=== PATIENT | female | born 2000 | race African-American/Black ===

== ENCOUNTER 2020-02-09 17:11 | Emergency (ER) | payer MEDICAID ==
[~2020-02-09] VITALS: Ht 147.3 cm; Wt 44.0 kg
[2020-02-09] MEDS ORDERED: SODIUM CHLORIDE 0.9% 1,000 ML IV ONE (18:09)
[2020-02-09 18:32] LABS: CLARITY URINE CLOUDY (CLEAR); COLOR URINE YELLOW (YELLOW); KETONES URINE 2+ (NEGATIVE); LEUKOCYTE ESTERASE URINE 2+ (NEGATIVE); NITRITE URINE POSITIVE (NEGATIVE); OCCULT BLOOD URINE NEGATIVE (NEGATIVE); PH URINE 7.5 (4.5-8.0); PROTEIN URINE TRACE (NEGATIVE); SPECIFIC GRAVITY URINE 1.022 (1.005-1.030); UROBILINOGEN URINE 0.2 E.U./dL (0.2-1.0)
[2020-02-09 18:45] LABS: *AMPHETAMINES SCREEN URINE NEGATIVE (NEGATIVE); *BARBITURATES SCREEN URINE NEGATIVE (NEGATIVE); *BENZODIAZEPINES SCREEN URINE NEGATIVE (NEGATIVE); *COCAINE SCREEN URINE NEGATIVE (NEGATIVE)
[2020-02-09 18:46] LABS: METHADONE URINE SCREEN NEGATIVE (NEGATIVE); OPIATES URINE SCREEN NEGATIVE (NEGATIVE); PHENCYCLIDINE URINE SCREEN NEGATIVE (NEGATIVE)
[2020-02-09 18:49] LABS: CHLORIDE 106 mEq/L (98-107)
[2020-02-09 18:49] LABS: CANNABINOID URINE SCREEN PRESUMTIVE POSITIVE (NEGATIVE)
[2020-02-09 18:51] LABS: BASOPHILS % 0.2 % (0.0-2.0); EOSINOPHILS % 0.2 % (0.0-5.0); HEMATOCRIT. 36.7 % (36.0-48.0); LYMPHOCYTES % 8.6 % (20.0-50.0); MEAN CORPUSCULAR HEMOGLOBIN 26.1 pg (28.0-32.0); MEAN CORPUSCULAR VOLUME 79.4 fL (81.0-99.0); MEAN PLATELET VOLUME 8.1 fl (7.4-10.4); MONOCYTES % 2.8 % (2.0-8.0); NEUTROPHILS % 88.2 % (40.0-76.0); PLATELET 268 x1000/uL (130-400); RED BLOOD CELL COUNT 4.62 mill/uL (4.2-5.4); RED CELL DISTRIBUTION WIDTH 17.5 % (11.6-14.6)
[2020-02-09 18:54] LABS: ETHANOL BLOOD < 10 mg/dL
[2020-02-09 18:56] LABS: HCG SCREEN NEGATIVE
[2020-02-09] MEDS ORDERED: ONDANSETRON HCL 4MG/2ML INJ IV ONE (20:00)
[2020-02-09] MEDS ORDERED: MORPHINE SULFATE 4 MG/ML CPJ (NOT FOR IM USE) IV ONE (20:00)
[2020-02-09 22:00] VITALS: BP 122/78
== END 2020-02-10 00:47 | disposition home or self-care (01) ==
LOC: ER 17:11
DX: S09.8XXA Other specified injuries of head, initial encounter (principal); V49.49XA Driver injured in collision with other motor vehicles in traffic accident, initial encounter; Y93.89 Activity, other specified; Y92.89 Other specified places as the place of occurrence of the external cause; Y99.8 Other external cause status; N39.0 Urinary tract infection, site not specified; K21.9 Gastro-esophageal reflux disease without esophagitis; R41.0 Disorientation, unspecified
CPT/HCPCS: 36415; 70450; 70486; 71045; 80053; 80305; 80320; 81003; 81025; 84703; 85025; 96361; 96374; 96375; 99285; J2270; J2405; J7030; G0480

== ENCOUNTER 2025-04-11 17:06 | Emergency (ER) | payer MEDICAID ==
[~2025-04-11] VITALS: Ht 149.9 cm; Wt 43.0 kg
[2025-04-11 17:16] VITALS: O2SAT 99
[2025-04-11 17:41] LABS: COLOR URINE YELLOW (YELLOW); GLUCOSE URINE NEGATIVE (NEGATIVE); KETONES URINE 2+ (NEGATIVE); LEUKOCYTE ESTERASE URINE 1+ (NEGATIVE); NITRITE URINE POSITIVE (NEGATIVE); OCCULT BLOOD URINE 1+ (NEGATIVE); PH URINE 6.0 (4.5-8.0); PROTEIN URINE TRACE (NEGATIVE); SPECIFIC GRAVITY URINE 1.022 (1.005-1.030); UROBILINOGEN URINE 1.0 E.U./dL (0.2-1.0)
[2025-04-11 17:57] LABS: CLARITY URINE HAZY (CLEAR)
[2025-04-11 18:00] LABS: BACTERIA URINE 3+; RBC URINE 0-2 /hpf (0-2); SQUAMOUS EPITHELIAL CELL URINE 2+ /lpf (RARE/1+); WBC URINE 15-25 /hpf (0-2)
[2025-04-11 18:01] LABS: MUCUS URINE TRACE /lpf (< = 2+)
[2025-04-11 19:57] LABS: BASOPHILS % 0.7 % (0.0-2.0); EOSINOPHILS % 0.5 % (0.0-5.0); HEMATOCRIT. 39.3 % (36.0-48.0); HEMOGLOBIN. 12.7 g/dL (12.0-16.0); LYMPHOCYTES % 29.7 % (20.0-50.0); MEAN PLATELET VOLUME 8.0 fl (7.4-10.4); MONOCYTES % 5.0 % (2.0-8.0); NEUTROPHILS % 64.1 % (40.0-76.0); PLATELET 269 x1000/uL (130-400); RED BLOOD CELL COUNT 4.73 mill/uL (4.2-5.4); RED CELL DISTRIBUTION WIDTH 17.6 % (11.6-14.6)
[2025-04-11 20:15] LABS: CREATININE 0.9 mg/dL (0.6-1.0)
[2025-04-11 20:16] LABS: UREA NITROGEN BLOOD 14 mg/dL (9-23)
[2025-04-11 20:17] LABS: ASPARTATE AMINOTRANSFERASE 17 IU/L (<34)
[2025-04-11 20:18] LABS: BILIRUBIN DIRECT 0.1 mg/dL (<=3.0); BILIRUBIN TOTAL 0.5 mg/dL (0.1-1.0); PROTEIN TOTAL 7.9 g/dL (6.0-8.3)
[2025-04-11] MEDS ORDERED: SULF1TAB48 MT (20:26)
[2025-04-11 20:47] VITALS: BP 112/74; PULSE 62; RESP 16; TEMP 36.9; O2SAT 99
== END 2025-04-11 20:54 | disposition home or self-care (01) ==
LOC: ER 17:06
DX: N39.0 Urinary tract infection, site not specified (principal)
CPT/HCPCS: 36415; 80048; 80076; 81003; 81025; 85025; 87077; 87186; 99283